=== PATIENT | female | born 1970 | race Caucasian/White ===

== ENCOUNTER → 2024-08-13 | Day surgery (SDC) | payer MEDICARE ==
[2024-08-10 10:51] LABS: BASOPHILS # (AUTO) 0.1 (0.0-0.1); BASOPHILS % 0.7 % (0.0-1.0); EOSINOPHILS # (AUTO) 0.2 (0.0-0.4); EOSINOPHILS % 1.4 % (0.0-6.0); HEMATOCRIT 44.7 % (34.2-44.1); HEMOGLOBIN 15.6 g/dL (12.0-16.0); LYMPHOCYTES # (AUTO) 1.8 (1.0-3.2); LYMPHOCYTES % 17.2 % (18.0-39.1); MEAN CORPUSCULAR HEMOGLOBIN 34.6 pg (28-32); MEAN CORPUSCULAR HGB CONC 34.9 g/dL (31-35); MEAN CORPUSCULAR VOLUME 99.1 fL (81-99); MONOCYTES # (AUTO) 0.7 (0.2-0.8); NEUTROPHILS # (AUTO) 7.8 (2.1-6.9); NEUTROPHILS % 72.9 % (38.7-80.0); PLATELET COUNT 205 x10e3/uL (140-360); RED BLOOD COUNT 4.51 x10e6/uL (3.6-5.1); RED CELL DISTRIBUTION WIDTH 13.1 % (11.7-14.4); WHITE BLOOD COUNT 10.63 x10e3/uL (4.8-10.8)
[~2024-08-13] MED LIST: ACETAMINOPHEN500 MG PO; AMLODIPINE BESY10 MG PO; BIKTARVY 50-201 EACH PO; DAYQUIL PO; DYMISTA NASAL S23 GM INH; FAMOTIDINE40 MG PO; FENTANYL CITRATE/PF 100MCG/2 ML INJ ONE; GLYCOPYRRO0.2 MG/1 M PO; HYDROCHLOROTHIA25 MG PO; LEVOTHYROXINE300 MCG PO; LIDOCAINE HCL 2% LOCAL INJ 5 ML SDV VIAL INJ ONE; LOSARTAN POTAS100 MG PO; METOCLOPRAMIDE HCL 10 MG/2ML VIAL ONE; MONTELUKAST SOD10 MG PO; NEURONTIN300 MG PO; NYQUIL PO; OMEPRAZOLE40 MG PO; PROPOFOL IV EMULSION 10 MG/ML 20 ML VIAL ONE; ROPINIROLE HC0.25 MG PO; TIZANIDINE HCL4 M1 PO; TRICOR48 MG PO; VITAMIN D3250 MC1 PO
[2024-08-13] MEDS: LACTATED RINGER'S 1,000 ML ONE (12:38)
[2024-08-13 14:49] VITALS: TEMP 97.8
[2024-08-13 15:00] VITALS: BP 116/68; PULSE 78; RESP 15; O2SAT 99
== END | disposition home or self-care (01) ==
LOC: ENDO 11:54
PROVIDERS: ATTEND Internal Medicine Gastroenterology
DX: K22.711 Barrett's esophagus with high grade dysplasia (principal); D13.1 Benign neoplasm of stomach; K44.9 Diaphragmatic hernia without obstruction or gangrene; K29.60 Other gastritis without bleeding; I10 Essential (primary) hypertension; R05.3 Chronic cough; F17.210 Nicotine dependence, cigarettes, uncomplicated; Z01.810 Encounter for preprocedural cardiovascular examination; Z01.812 Encounter for preprocedural laboratory examination; Z80.0 Family history of malignant neoplasm of digestive organs; Z86.0100 Personal history of colon polyps, unspecified; Z88.2 Allergy status to sulfonamides; Z91.048 Other nonmedicinal substance allergy status
CPT/HCPCS: 36415; 43239; 43251; 43450; 85025; 93005; J2003; J2470; J2704; J2765; J7121